=== PATIENT | male | born 1990 | race Caucasian/White ===

== ENCOUNTER 2022-04-27 08:19 | Outpatient (CLI) | payer OTHER, SELFPAY ==
[2022-05-01 10:33] LABS: Testosterone Total 624 ng/dL (250-1100)
== END 2022-04-27 08:20 | disposition home or self-care (01) ==
PROVIDERS: PCP Family Medicine; Visit Provider Nurse Practitioner
DX: R53.83 Other fatigue (principal)
CPT/HCPCS: 36415; 84403